=== PATIENT | female | born 1990 | race Caucasian/White ===

== ENCOUNTER → 2017-11-21 | Outpatient (CLI) | payer MEDICAID ==
[~2017-11-21] MED LIST: DULO30CA PO; HYDR-531 PO
[2017-11-21 11:35] VITALS: BP 141/81
[2017-11-21 12:10] VITALS: BP 125/84
[2017-11-21 16:11] LABS: BUN/Creatinine Ratio 15.4; Calcium 8.7 mg/dL (8.5-10.1)
[2017-11-21 17:42] LABS: INR 0.93 (0.9-1.15); Partial Thromboplastin Time 31.9 sec (22.64-33.71); Prothrombin Time 10.1 sec (9.37-12.3)
[2017-11-21 17:48] LABS: Basophils # (auto) 0 uL; Basophils % (auto) 0.6 % (0.0-2.0); Eosinophils # (auto) 0 uL; Eosinophils % (auto) 0.6 % (0.0-7.0); Hematocrit 39.8 % (36.0-46.0); Hemoglobin 13.3 g/dL (12.2-16.2); Lymphocytes % (auto) 36.7 % (10.0-50.0); Mean Corpuscular Hemoglobin 29.5 pg (28.0-32.0); Mean Corpuscular Hgb Conc. 33.4 g/dL (32.0-36.0); Mean Corpuscular Volume 88.3 fL (80.0-100.0); Monocytes # (auto) 0.5 uL; Monocytes % (auto) 9.6 % (0.0-12.0); Neutrophils # (auto) 2.8 uL; Neutrophils % (auto) 52.5 % (37.0-80.0); Nucleated Red Blood Cells % 0.9 %; Platelet Count (auto) 335 10^3/uL (140-450); Red Blood Cells 4.51 10^6/uL (4.0-5.20); Red Cell Distribution Width 13.4 % (11.8-14.3); White Blood Cell 5.4 10^3/uL (4.4-10.8)
== END | disposition home or self-care (01) ==
LOC: Rad HDHVI 11:25
PROVIDERS: ATTEND Internal Medicine Cardiovascular Disease
DX: Z01.818 Encounter for other preprocedural examination (principal); I70.0 Atherosclerosis of aorta; D64.9 Anemia, unspecified; R79.1 Abnormal coagulation profile; I10 Essential (primary) hypertension; Z32.00 Encounter for pregnancy test, result unknown
CPT/HCPCS: 36415; 71046; 80048; 84702; 85025; 85610; 85730; 93005; G0463

== ENCOUNTER 2017-11-23 10:45 | Day surgery (SDC) | payer MEDICAID ==
[~2017-11-23] VITALS: Ht 170.2 cm; Wt 122.5 kg
[2017-11-23] MEDS ORDERED: IOHEXOL 350 MG/ML 100ML IJ ONE (12:17)
[2017-11-23] MEDS ORDERED: LIDOCAINE HCL 2 %PF INJ 10ML AMP IJ ONE ×2 (12:17→13:11)
[2017-11-23] MEDS ORDERED: fentaNYL CITRATE 100 MCG/2 ML VL ONE (13:05)
[2017-11-23] MEDS ORDERED: MIDAZOLAM HCL 1MG/1ML-2 ML VIAL ONE (13:05)
== END 2017-11-23 17:05 | disposition home or self-care (01) ==
LOC: CATH 10:45
PROVIDERS: ATTEND Internal Medicine Cardiovascular Disease
DX: R94.39 Abnormal result of other cardiovascular function study (principal); R06.02 Shortness of breath; Z88.0 Allergy status to penicillin; E66.01 Morbid (severe) obesity due to excess calories; Z68.41 Body mass index [BMI] 40.0-44.9, adult; G47.30 Sleep apnea, unspecified; F17.210 Nicotine dependence, cigarettes, uncomplicated; J45.909 Unspecified asthma, uncomplicated
CPT/HCPCS: 93460; C1760; C1894; J1644; J3010; J7030; Q9967; 99152; C1751; J2250